=== PATIENT | male | born 1965 | race Hispanic/Latino ===

== ENCOUNTER 2016-09-27 16:56 | Emergency (ER) | payer MEDICAID ==
[2016-09-27 16:59] VITALS: TEMP 98.4; BMI 34.4
[2016-09-27] MEDS ORDERED: TDAP Vaccine 0.5 mL Syr IM ONE (17:07)
--- NOTE | 2016-09-27 17:11 | ED PDOC ---
Arrival/HPI - General Chief Complaint: Abnormal Skin Integrity Time Seen by Provider: 09/27/16 17:06 Historian: Parent - History of Present Illness Narrative History of Present Illness (Text): 09/27/16 17:08 51 y/o male, pmh including copd, nkda, c/o rt. hand 1st digit laceration x 5 hours. Pt. was folding the metal table and caught the rt. hand 1st digital thumb on it, no numbness or tingling, no fever or chills, no headache or night sweat, no other medical or psychological complaints. Past Medical History - Provider Review Nursing Documentation Reviewed: Yes - Infectious Disease Hx of Infectious Diseases: None - Tetanus Immunization Tetanus Immunization: Unknown - Cardiac Hx Cardiac Disorders: Yes Hx Hypertension: Yes - Pulmonary Hx Asthma: Yes Hx Bronchitis: Yes Hx Chronic Obstructive Pulmonary Disease (COPD): Yes - Neurological Hx Neurological Disorder: No - HEENT Hx HEENT Disorder: Yes (WEARS RX GLASSES) - Renal Hx Renal Disorder: No - Endocrine/Metabolic Hx Endocrine Disorders: No - Hematological/Oncological Hx Blood Disorders: No - Integumentary Hx Dermatological Disorder: No - Musculoskeletal/Rheumatological Hx Musculoskeletal Disorders: Yes Hx Arthritis: Yes (DJD) Other/Comment: spinal stenosis - Gastrointestinal Hx Gastrointestinal Disorders: Yes Hx Gastroesophageal Reflux: Yes - Genitourinary/Gynecological Hx Genitourinary Disorders: Yes Hx Prostate Problems: Yes (BPH) - Psychiatric Hx Psychophysiologic Disorder: Yes Hx Anxiety: Yes Hx Depression: No Hx Emotional Abuse: No Hx Physical Abuse: No Hx Substance Use: No - Past Surgical History Past Surgical History: No Previous - Surgical History Other/Comment: gall stone - Anesthesia Hx Anesthesia: Yes Hx Anesthesia Reactions: No - Suicidal Assessment Feels Threatened In Home Enviroment: No Family/Social History - Physician Review Nursing Documentation Reviewed: Yes Family/Social History: Unknown Family HX Smoking Status: Heavy Smoker > 10 Cigarettes Daily Hx Alcohol Use: No Hx Substance Use: No Hx Substance Use Treatment: No Allergies/Home Meds Allergies/Adverse Reactions: Allergies No Known Allergies Allergy (Verified 09/27/16 16:59) Home Medications: Home Meds Medication Instructions Recorded Confirmed Gabapentin [Neurontin] 300 mg PO TID 07/16/12 09/27/16 Omeprazole 40 mg PO DAILY 07/16/12 09/27/16 Celecoxib [Celebrex] 200 mg PO BID 02/23/15 09/27/16 Fluticasone/Salmeterol 250/50 1 puff INH BID 02/23/15 09/27/16 [Advair Diskus 250/50] Oxycodone HCl/Acetaminophen 1 tab PO PRN PRN 06/02/15 09/27/16 [Percocet 325 mg-5 mg] Cyclobenzaprine [Flexeril] 10 mg PO DAILY 06/12/15 09/27/16 Magnesium Oxide [Magnesium Oxide] 400 mg PO DAILY 06/13/15 09/27/16 Potassium Chloride 20 mEq 20 meq PO DAILY 06/13/15 09/27/16 Review of Systems - Review of Systems Constitutional: absent: Fatigue, Fevers Eyes: absent: Vision Changes ENT: absent: Hearing Changes Respiratory: absent: Cough Cardiovascular: absent: Chest Pain Gastrointestinal: absent: Abdominal Pain, Nausea, Vomiting Skin: Laceration. absent: Rash, Pruritis, Skin Lesions, Abscess, Ulcer, Cellulitis Neurological: absent: Headache, Dizziness, Focal Weakness, Gait Changes, Speech Changes, Facial Droop, Disequilibrium, Seizure Physical Exam Vital Signs Reviewed: Yes Vital Signs Temp Pulse Resp BP Pulse Ox 09/27/16 18:47 95 H 18 145/89 98 09/27/16 16:59 98.4 F 105 H 19 171/108 H 96 Temperature: Afebrile Blood Pressure: Hypertensive Pulse: Tachycardic Respiratory Rate: Normal Appearance: Positive for: Well-Appearing, Non-Toxic, Comfortable Pain Distress: Mild Mental Status: Positive for: Alert and Oriented X 3 - Systems Exam Head: Present: Atraumatic, Normocephalic Pupils: Present: PERRL Extroacular Muscles: Present: EOMI Conjunctiva: Present: Normal Mouth: Present: Moist Mucous Membranes Neck: Present: Normal Range of Motion Respiratory/Chest: Present: Clear to Auscultation, Good Air Exchange. No: Respiratory Distress, Accessory Muscle Use Cardiovascular: Present: Regular Rate and Rhythm, Normal S1, S2. No: Murmurs Abdomen: Present: Normal Bowel Sounds. No: Tenderness, Distention, Peritoneal Signs Back: Present: Normal Inspection Upper Extremity: Present: Normal Inspection, Other (Rt. hand: 1st digit thumb visible approx. 2cm laceration noted from the lateral to medial aspect of the base of the nail border region, FROM without limitation, sensation intact, motor 5/5, +radial pulse, capillary refill< 2 seconds, neurovascular intact, ). No: Cyanosis, Edema Lower Extremity: Present: Normal Inspection. No: Edema Neurological: Present: GCS=15, CN II-XII Intact, Speech Normal Skin: Present: Warm, Dry, Normal Color. No: Rashes Psychiatric: Present: Alert, Oriented x 3, Normal Insight, Normal Concentration Medical Decision Making ED Course and Treatment: 09/27/16 17:11 -tetanus, keflex -xray r/o fracture -sensation intact, motor 5/5, wound irrigate with normal saline with 1000cc of normal saline, clean with betadine, sterile procedure, 1% lidocaine digital block the thumb with 2cc, 5-0 nylon made 6 stiches, sensation intact, motor 5/5 , +radial pulse, capillary refill< 2 seconds, neurovascular intact. 09/27/16 18:30 -Ancef 1gm ordered -xray show there is fracture which the patient refused for the hand specialist consult as he will see his own pmd Dr. Velazquez tomorrow for referral for hand specialist which he can see within 2-3 days, risk and benefits explained. -Discharge home with keflex, bacitracin ointment, take tylenol at home for pain as needed, finger splint, keep the skin cool and dry for 48 hours ,sutures need to be removed by day 12, follow up with your own pmd and hand specialist within 2 days, return to the ER for any new or worsening signs or symptoms. - RAD Interpretation Radiology Orders: 09/27/16 17:06 HAND LEFT THUMB [RAD] Stat transverse fracture of the distal phalanx Primary Operator: Radiologist - Medication Orders Current Medication Orders: Discontinued Medications Cefazolin Sodium (Ancef) 1 gm IM STAT STA PRN Reason: Protocol Stop: 09/27/16 18:35 Last Admin: 09/27/16 18:53 Dose: 1 gm Cephalexin Monohydrate (Keflex) 500 mg PO STAT STA PRN Reason: Protocol Stop: 09/27/16 17:08 Last Admin: 09/27/16 17:21 Dose: 500 mg Tetanus/Reduced Diphtheria/Acell Pertussis (Boostrix Vaccine Inj) 0.5 ml IM .ONCE ONE Stop: 09/27/16 17:08 Last Admin: 09/27/16 17:21 Dose: 0.5 ml - PA / EXTRACTION MACHINE OPERATOR / Resident Statement MD/DO has reviewed & agrees with the documentation as recorded. Disposition/Present on Arrival - Present on Arrival Any Indicators Present on Arrival: No History of DVT/PE: No History of Uncontrolled Diabetes: No Urinary Catheter: No History of Decub. Ulcer: No History Surgical Site Infection Following: None - Disposition Have Diagnosis and Disposition been Completed?: Yes Diagnosis: Thumb fracture, Laceration of thumb Disposition: HOME/ ROUTINE Disposition Time: 18:31 Patient Plan: Discharge Condition: IMPROVED Additional Instructions: Discharge home with keflex, bacitracin ointment, take tylenol at home for pain as needed, finger splint, keep the skin cool and dry for 48 hours ,sutures need to be removed by day 12, follow up with your own pmd and hand specialist within 2 days, return to the ER for any new or worsening signs or symptoms. Prescriptions: Bacitracin Ointment [Bacitracin] 1 appful TOP BID #15 g Cephalexin [cephalexin] 500 mg PO QID #40 cap Referrals: Primo Velazquez JD, MD [Primary Care Provider] - Follow up with primary Yonny Perez MD [Non-Staff] - Follow up with primary Forms: WORK NOTE
[2016-09-27 18:48] VITALS: BP 145/89; PULSE 95; RESP 18; O2SAT 98
--- NOTE | 2016-09-28 08:34 | RAD ---
PROCEDURE: Left Hand and thumb Radiographs. HISTORY: lt. hand 1st digit thumb laceration COMPARISON: None. FINDINGS: BONES: There is a transverse fracture through the 1st distal phalanx. There is extensive soft tissue swelling JOINTS: Normal. No osteoarthritic changes. SOFT TISSUES: Normal. OTHER FINDINGS: None. IMPRESSION: Transverse fracture 1st distal phalanx with soft tissue swelling
== END 2016-09-27 19:03 | disposition home or self-care (01) ==
LOC: ED 16:56
DX: S61.012A Laceration without foreign body of left thumb without damage to nail, initial encounter (principal); S62.522A Displaced fracture of distal phalanx of left thumb, initial encounter for closed fracture; W23.0XXA Caught, crushed, jammed, or pinched between moving objects, initial encounter; I10 Essential (primary) hypertension; Z23 Encounter for immunization; F17.210 Nicotine dependence, cigarettes, uncomplicated
CPT/HCPCS: 12001; 73140; 90471; 90715; 96372; 99282; J0690

== ENCOUNTER 2016-12-06 16:59 | Emergency (ER) | payer MEDICAID ==
[2016-12-06 17:31] VITALS: BMI 32.5
[2016-12-06] MEDS ORDERED: Vancomycin 1gm in NS 250ml 1 GM/250 ML BAG IVPB STA (17:34)
[2016-12-06] MEDS ORDERED: Piperacillin/Tazobact 3.375 gm 100 ML IVPB STA (17:36)
[2016-12-06] MEDS ORDERED: Lidocaine 1% Inj (20ml) ONE (18:00)
--- NOTE | 2016-12-06 18:11 | ED PDOC ---
Addendum entered and electronically signed by Hilda Iniguez PA-C 12/07/16 15:17 : Addendum Addendum: 12/07/16 15:16 EKG: NSR at 97 bpm. Normal interval Original Note: Arrival/HPI - General Historian: Patient - History of Present Illness Time/Duration: < week Symptom Onset: Gradual Symptom Course: Worsening Context: Home - General Time Seen by Provider: 12/06/16 17:08 - History of Present Illness Narrative History of Present Illness (Text): 12/06/16 17:27 This 51 yo male PMHx includes gallstones, COPD, spinal stenosis presents to this ED c/o left forearm abscess x 4 days. Patient also stated he developed a rash x 4 days [address] Patient saw Dr. Velazquez regarding the skin problems. Dr. Velazquez prescribed him Valtrex for shingles, Lidocaine cream for rash pain, and topical antibiotic for abscess. Patient antibiotic cream is not working. He said his left arm is twice a big to right arm. He said he develop an acute left sided chest pain, and lefty shoulder pain x 1 hour. Pain is worsen with movement, or deep inspiration. Denies other complains. (Hilda Iniguez) Past Medical History - Provider Review Nursing Documentation Reviewed: Yes - Infectious Disease Hx of Infectious Diseases: None - Tetanus Immunization Tetanus Immunization: Unknown - Cardiac Hx Cardiac Disorders: Yes Hx Hypertension: Yes - Pulmonary Hx Asthma: Yes Hx Bronchitis: Yes Hx Chronic Obstructive Pulmonary Disease (COPD): Yes - Neurological Hx Neurological Disorder: No - HEENT Hx HEENT Disorder: Yes (WEARS RX GLASSES) - Renal Hx Renal Disorder: No - Endocrine/Metabolic Hx Endocrine Disorders: No - Hematological/Oncological Hx Blood Disorders: No - Integumentary Hx Dermatological Disorder: No - Musculoskeletal/Rheumatological Hx Musculoskeletal Disorders: Yes Hx Arthritis: Yes (DJD) Other/Comment: spinal stenosis - Gastrointestinal Hx Gastrointestinal Disorders: Yes Hx Gastroesophageal Reflux: Yes - Genitourinary/Gynecological Hx Genitourinary Disorders: Yes Hx Prostate Problems: Yes (BPH) - Psychiatric Hx Psychophysiologic Disorder: Yes Hx Anxiety: Yes Hx Depression: No Hx Emotional Abuse: No Hx Physical Abuse: No Hx Substance Use: No - Past Surgical History Past Surgical History: No Previous - Surgical History Other/Comment: gall stone - Anesthesia Hx Anesthesia: Yes Hx Anesthesia Reactions: No - Suicidal Assessment Feels Threatened In Home Enviroment: No Family/Social History - Physician Review Nursing Documentation Reviewed: Yes Family/Social History: No Known Family HX Smoking Status: Heavy Smoker > 10 Cigarettes Daily Hx Alcohol Use: No Hx Substance Use: No Hx Substance Use Treatment: No Allergies/Home Meds Allergies/Adverse Reactions: Allergies No Known Allergies Allergy (Verified 09/27/16 16:59) Home Medications: Home Meds Medication Instructions Recorded Confirmed Gabapentin [Neurontin] 300 mg PO TID 07/16/12 12/06/16 Omeprazole 40 mg PO DAILY 07/16/12 12/06/16 Celecoxib [Celebrex] 200 mg PO BID 02/23/15 12/06/16 Fluticasone/Salmeterol 250/50 1 puff INH BID 02/23/15 12/06/16 [Advair Diskus 250/50] Oxycodone HCl/Acetaminophen 1 tab PO PRN PRN 06/02/15 12/06/16 [Percocet 325 mg-5 mg] Cyclobenzaprine [Flexeril] 10 mg PO DAILY 06/12/15 12/06/16 Magnesium Oxide [Magnesium Oxide] 400 mg PO DAILY 06/13/15 12/06/16 Potassium Chloride 20 mEq 20 meq PO DAILY 06/13/15 12/06/16 Review of Systems - Review of Systems Constitutional: Normal. absent: Fatigue, Weight Change, Fevers Eyes: Normal ENT: Normal Respiratory: Normal Cardiovascular: Normal Gastrointestinal: Normal Genitourinary Male: Normal Musculoskeletal: Normal Skin: Rash, Abscess, Cellulitis Neurological: Normal Endocrine: Normal Hemo/Lymphatic: Normal Psychiatric: Normal Physical Exam Temperature: Afebrile Blood Pressure: Normal Pulse: Regular Respiratory Rate: Normal Appearance: Positive for: Well-Appearing, Non-Toxic, Comfortable Pain Distress: None Mental Status: Positive for: Alert and Oriented X 3 - Systems Exam Head: Present: Atraumatic, Normocephalic Pupils: Present: PERRL Extroacular Muscles: Present: EOMI Conjunctiva: Present: Normal Mouth: Present: Moist Mucous Membranes Neck: Present: Normal Range of Motion Respiratory/Chest: Present: Clear to Auscultation, Good Air Exchange, Tender to Palpation ((+) mild left costochondral tender on palpation. Left side CP is 100 % reproducible.). No: Respiratory Distress, Accessory Muscle Use Cardiovascular: Present: Regular Rate and Rhythm, Normal S1, S2. No: Murmurs Abdomen: Present: Normal Bowel Sounds. No: Tenderness, Distention, Peritoneal Signs Back: Present: Normal Inspection Upper Extremity: Present: Normal Inspection. No: Cyanosis, Edema Lower Extremity: Present: Normal Inspection. No: Edema Neurological: Present: GCS=15, CN II-XII Intact, Speech Normal Skin: Present: Warm, Dry, Normal Color. No: Rashes Psychiatric: Present: Alert, Oriented x 3, Normal Insight, Normal Concentration Vital Signs Temp Pulse Resp BP Pulse Ox 12/06/16 18:32 16 94 L 12/06/16 17:55 97.1 F L 85 16 125/70 90 L Medical Decision Making Re-evaluation Time: 20:56 Reassessment Condition: Re-examined, Improved - Lab Interpretations I have reviewed the lab results: Yes Interpretation: No clinic. lab abnormalty ED Course and Treatment: I was available for consultation during PA evaluation. The chart was reviewed by me, and I agree with disposition. The documented history was done by the physician heading pinner. The documented physical exam was done by the physician heading pinner. The documented procedures were done by the physician heading pinner. (Nicho Valenzuela) 12/06/16 20:35 Patient stated his left arm infection has improved, and he denies CP at this time. He denies sob, cough, fever, recent travel or sick contact 12/06/16 20:[address] Velazquez regarding left forearm cellulitis, and abscess. Ans , also regarding left CP. CP is 100 % reproducible on palpation. Labs and imaging were reviewed. Normal wbc, sed rate, and troponin. Dr. Velazquez recommended to d/c patient home, and to f/u his office tomorrow morning. (Hilda Iniguez) - Lab Interpretations Lab Results: 12/06/16 18:20 12/06/16 18:20 Lab Results 12/06/16 18:20: pO2 185 H, VBG pH 7.35, VBG pCO2 59.0, VBG HCO3 32.6 H, VBG Total CO2 34.4 H, VBG O2 Sat (Calc) 99.6 H, VBG Base Excess 5.2 H, VBG Potassium 4.5, Sodium 136.0, Chloride 104.0, Glucose 97, Lactate 0.5 L, FiO2 21.0, Venous Blood Potassium 4.5 12/06/16 18:20: Sodium 138, Chloride 100, Potassium 4.2, Carbon Dioxide 30, Anion Gap 12, BUN 27 H, Creatinine 1.0, Est GFR ( Amer) > 60, Est GFR ( Non-Af Amer) > 60, Random Glucose 96, Calcium 9.2, Magnesium 2.0, Total Bilirubin 0.7, AST 30, ALT 34, Alkaline Phosphatase 68, Lactate Dehydrogenase 542, Total Creatine Kinase 335 H, CK-MB (CK-2) 7.6 H, CK-MB (CK-2) % 2.3 L, Troponin I < 0.01, NT-Pro-B Natriuret Pep 55.3, Total Protein 6.9, Albumin 4.0, Globulin 3.0, Albumin/Globulin Ratio 1.3 12/06/16 18:20: WBC 10.2 D, RBC 4.60, Hgb 13.7 L, Hct 40.9 L, MCV 88.9, MCH 29.8, MCHC 33.5, RDW 12.8, Plt Count 202, MPV 9.0, Gran % 71.6 H, Lymph % (Auto ) 15.9 L, [place] % (Auto) 10.0 H, Eos % (Auto) 2.0, Baso % (Auto) 0.5, Gran # 7.33 H, Lymph # 1.6, [place] # 1.0 H, Eos # 0.2, Baso # 0.05, ESR 8 - RAD Interpretation Narrative RAD Interpretations (Text): 12/06/16 18:14 Venous Doppler of UE: No DVT, as per US (Hilda Iniguez) Radiology Orders: 12/06/16 17:33 CHEST PORTABLE [RAD] Stat 12/06/16 17:35 DUPLEX UPPER EXTRM VEIN LEFT [US] Stat - Medication Orders Current Medication Orders: Discontinued Medications Albuterol/Ipratropium (Duoneb 3 Mg/0.5 Mg (3 Ml) Ud) 3 ml IH Q15M NORBERT Stop: 12/06/16 18:16 Last Admin: 12/06/16 19:29 Dose: 3 ml Vancomycin HCl (Vancomycin 1gm) 1 gm in 250 mls @ 167 mls/hr IVPB STAT STA PRN Reason: Protocol Stop: 12/06/16 19:03 Last Admin: 12/06/16 19:31 Dose: 167 mls/hr Piperacillin Sod/Tazobactam Sod (Zosyn 3.375 In Ns 100ml) 100 mls @ 200 mls/hr IVPB STAT STA PRN Reason: Protocol Stop: 12/06/16 18:05 Last Admin: 12/06/16 18:40 Dose: 200 mls/hr Lidocaine HCl (Lidocaine 1% (20ml)) Confirm Administered Dose 20 ml .ROUTE .K- MED ONE Stop: 12/06/16 18:01 - Procedure PROCEDURE NOTE (Text): PROCEDURE: INCISION & DRAINAGE Performed by the emergency provider Indication: Abscess Location: Left forearm Preparation: The area was prepped and draped in the usual sterile fashion and was cleansed with chlorhexadine. Local infiltration of Lidocaine 1% was used for anesthesia. Procedure: The most fluctuant portion of the abscess was incised with a #11 scalpel. ~ Approximately 1 mL of purulent discharge was obtained. The abscess was packed. A dressing was applied by the RN. Post-Procedure: On exam the abscess is notably less fluctuant. The patient tolerated the procedure well, and there were no complications. Cultured: YES (Vitaliy Davis) Disposition/Present on Arrival - Present on Arrival Any Indicators Present on Arrival: No History of DVT/PE: No History of Uncontrolled Diabetes: No Urinary Catheter: No History Surgical Site Infection Following: None - Disposition Have Diagnosis and Disposition been Completed?: Yes Disposition Time: 20:59 Patient Plan: Discharge - Disposition Diagnosis: Cellulitis and abscess of upper arm and forearm Disposition: HOME/ ROUTINE Patient Problems: Current Active Problems Problem Status Onset Cellulitis and abscess of upper arm and forearm Acute Condition: GOOD Discharge Instructions (ExitCare): Cellulitis (ED) Additional Instructions: Dr. Velazquez wants to see you tomorrow morning Prescriptions: Amoxicillin/Clavulanate [Augmentin 875 MG-125 MG] 1 tab PO BID #20 tab Sulfamethoxazole/Trimethoprim [Bactrim DS 800 mg-160 mg] 1 tab PO BID #20 tab Referrals: Primo Velazquez JD, MD [Primary Care Provider] - Follow up with primary
[2016-12-06 18:28] VITALS: TEMP 97.1
--- NOTE | 2016-12-06 18:37 | US ---
PROCEDURE: Left upper extremity venous ultrasound HISTORY: Arm pain and swelling. Evaluate for deep venous thrombosis. PHYSICIAN(S): Dominguez Issa MD. FINDINGS: The visualized leftinternal jugular vein is small in caliber but patent. The visualized segments of the left subclavian vein are patent with normal waveforms. No sonographic evidence of obstruction or thrombosis is seen. The visualized deep venous system of the proximal leftupper extremity is sonographically normal and compressible. IMPRESSION: 1. No sonographic evidence for deep venous thrombosis in the visualized segments of the left upper extremity.
[2016-12-06 19:02] LABS: BASO # 0.05 K/mm3 (0.0-2.0); BASO % 0.5 % (0.0-3.0); EOS # 0.2 (0.0-0.7); GRAN # 7.33 (1.4-6.5); GRAN % 71.6 % (50.0-68.0); HEMOGLOBIN 13.7 gm/dL (14.0-18.0); LYMPH # 1.6 (1.2-3.4); LYMPH % 15.9 % (22.0-35.0); MEAN CELL VOLUME 88.9 fL (80.0-105.0); MEAN CORPUSCULAR HEMOGLOBIN 29.8 pg (25.0-35.0); MEAN CORPUSCULAR HGB CONC 33.5 g/dl (31.0-37.0); PLATELET COUNT 202 10^3/uL (120.0-450.0); RED CELL DISTRIBUTION WIDTH 12.8 % (11.5-14.5); WHITE BLOOD COUNT 10.2 10^3/ul (4.5-11.0)
[2016-12-06 19:05] LABS: VENOUS BLOOD GAS BASE EXCESS 5.2 mmol/L (0.0-2.0); VENOUS BLOOD GAS PO2 185 mm/Hg (30-55); VENOUS BLOOD PH 7.35 (7.32-7.43)
[2016-12-06 19:14] LABS: ALB/GLOB RATIO 1.3 (1.1-1.8); ALT/SGPT 34 U/L (7-56); AST/SGOT 30 U/L (15-59); BLOOD UREA NITROGEN 27 mg/dL (7-21); CALCIUM 9.2 mg/dL (8.4-10.5); GFR AFRICAN-AMERICAN > 60; GFR NON-AFRICAN AMERICAN > 60
[2016-12-06 19:25] LABS: B-TYPE NATRIURETIC PEPTIDE 55.3 pg/mL (0-450)
[2016-12-06 19:29] LABS: CK MB% 2.3 % (2.5-3.0); CK-MB 7.6 ng/mL (0.0-3.6)
[2016-12-06] MEDS: Albuterol-Ipratrop 3 mg / 0.5 (3 ml) UD IH SCH (19:29)
[2016-12-06 19:30] LABS: TROPONIN I < 0.01 ng/mL
--- NOTE | 2016-12-06 19:33 | CARD ---
APPROVED REPORT EKG Measurement Heart [id number] <Conclusion> Normal sinus rhythm Normal ECG
[2016-12-06 21:24] VITALS: BP 127/69; PULSE 69; RESP 18; O2SAT 98
--- NOTE | 2016-12-07 08:23 | RAD ---
HISTORY: sob COMPARISON: 08/08/2016 FINDINGS: LUNGS: No active pulmonary disease. PLEURA: No significant pleural effusion identified, no pneumothorax apparent. CARDIOVASCULAR: Normal. OSSEOUS STRUCTURES: No significant abnormalities. VISUALIZED UPPER ABDOMEN: Normal. OTHER FINDINGS: None. IMPRESSION: No active disease.
== END 2016-12-06 21:22 | disposition home or self-care (01) ==
LOC: ED 16:59
DX: L02.414 Cutaneous abscess of left upper limb (principal); L03.114 Cellulitis of left upper limb
CPT/HCPCS: 10060; 71010; 80053; 82550; 82553; 82803; 83615; 83735; 83880; 84484; 85025; 85651; 86140; 87040; 87070; 93005; 93971; 94640; 96374; 96375; 99283; J2543

== ENCOUNTER 2016-12-07 19:19 | Inpatient (IN) | payer MEDICAID ==
[2016-12-07 19:20] VITALS: BMI 32.5
--- NOTE | 2016-12-07 19:52 | ED PDOC ---
Arrival/HPI <PeterJohn meng - Last Filed: 12/07/16 20:05> - General Historian: Patient - History of Present Illness Time/Duration: Other (see hpi) Context: Home <Hilda Iniguez - Last Filed: 12/15/16 21:45> - General Chief Complaint: Upper Extremity Problem/Injury Time Seen by Provider: 12/07/16 19:25 - History of Present Illness Narrative History of Present Illness (Text): 12/07/16 19:51 This 51 yo male presents to this ED c/o worsening of left forearm skin infection. Patient has been recently seen by his pmd for left forearm shingles. He was seen in this ED for abscess, and left forearm cellulitis. Patient has been taking abx, but infection has worsen. Denies fever, or other complains. (Hilda Iniguez) Past Medical History - Provider Review Nursing Documentation Reviewed: Yes - Infectious Disease Hx of Infectious Diseases: None - Tetanus Immunization Tetanus Immunization: Unknown - Cardiac Hx Cardiac Disorders: Yes Hx Hypertension: Yes - Pulmonary Hx Asthma: Yes Hx Bronchitis: Yes Hx Chronic Obstructive Pulmonary Disease (COPD): Yes - Neurological Hx Neurological Disorder: No - HEENT Hx HEENT Disorder: Yes (WEARS RX GLASSES) - Renal Hx Renal Disorder: No - Endocrine/Metabolic Hx Endocrine Disorders: No - Hematological/Oncological Hx Blood Disorders: No - Integumentary Hx Dermatological Disorder: No - Musculoskeletal/Rheumatological Hx Musculoskeletal Disorders: Yes Hx Arthritis: Yes (DJD) Other/Comment: spinal stenosis - Gastrointestinal Hx Gastrointestinal Disorders: Yes Hx Gastroesophageal Reflux: Yes - Genitourinary/Gynecological Hx Genitourinary Disorders: Yes Hx Prostate Problems: Yes (BPH) - Psychiatric Hx Psychophysiologic Disorder: Yes Hx Anxiety: Yes Hx Depression: No Hx Emotional Abuse: No Hx Physical Abuse: No Hx Substance Use: No - Past Surgical History Past Surgical History: No Previous - Surgical History Other/Comment: gall stone - Anesthesia Hx Anesthesia: Yes Hx Anesthesia Reactions: No - Suicidal Assessment Feels Threatened In Home Enviroment: No <Hilda Iniguez - Last Filed: 12/15/16 21:45> Family/Social History - Physician Review Nursing Documentation Reviewed: Yes Family/Social History: No Known Family HX Smoking Status: Heavy Smoker > 10 Cigarettes Daily Hx Alcohol Use: No Hx Substance Use: No Hx Substance Use Treatment: No <Hilda Iniguez - Last Filed: 12/15/16 21:45> Allergies/Home Meds <John rGeen - Last Filed: 12/07/16 20:05> <Hilda Iniguez - Last Filed: 12/15/16 21:45> Allergies/Adverse Reactions: Allergies No Known Allergies Allergy (Verified 09/27/16 16:59) Home Medications: Home Meds Medication Instructions Recorded Confirmed Gabapentin [Neurontin] 300 mg PO TID 07/16/12 12/07/16 Omeprazole 40 mg PO DAILY 07/16/12 12/07/16 Celecoxib [Celebrex] 200 mg PO BID 02/23/15 12/07/16 Fluticasone/Salmeterol 250/50 1 puff INH BID 02/23/15 12/07/16 [Advair Diskus 250/50] Cyclobenzaprine [Flexeril] 10 mg PO DAILY 06/12/15 12/07/16 Magnesium Oxide [Magnesium Oxide] 400 mg PO DAILY 06/13/15 12/07/16 Potassium Chloride 20 mEq 20 meq PO DAILY 06/13/15 12/07/16 Celecoxib [Celebrex] 400 mg PO DAILY 12/07/16 12/07/16 Famciclovir [Famvir] 500 mg PO QID 12/07/16 12/07/16 Losartan Potassium [Losartan 50 mg PO DAILY 12/07/16 12/07/16 Potassium] Omeprazole [Omeprazole] 40 mg pe PO DAILY 12/07/16 12/07/16 Oxycodone HCl/Acetaminophen 1 tab PO Q6H PRN 12/08/16 12/08/16 [Percocet 10-325 mg Tablet] Review of Systems - Review of Systems Constitutional: Normal. absent: Fatigue, Weight Change, Fevers Eyes: Normal ENT: Normal Respiratory: Normal Cardiovascular: Normal Gastrointestinal: Normal Genitourinary Male: Normal Musculoskeletal: Normal Skin: Abscess, Cellulitis (left forearm) Neurological: Normal Endocrine: Normal Hemo/Lymphatic: Normal Psychiatric: Normal <Hilda Iniguez - Last Filed: 12/15/16 21:45> Physical Exam Temperature: Afebrile Blood Pressure: Normal Pulse: Regular Respiratory Rate: Normal Appearance: Positive for: Well-Appearing, Non-Toxic, Comfortable Pain Distress: None Mental Status: Positive for: Alert and Oriented X 3 - Systems Exam Head: Present: Atraumatic, Normocephalic Pupils: Present: PERRL Extroacular Muscles: Present: EOMI Conjunctiva: Present: Normal Mouth: Present: Moist Mucous Membranes Neck: Present: Normal Range of Motion Respiratory/Chest: Present: Clear to Auscultation, Good Air Exchange. No: Respiratory Distress, Accessory Muscle Use Cardiovascular: Present: Regular Rate and Rhythm, Normal S1, S2. No: Murmurs Abdomen: Present: Normal Bowel Sounds. No: Tenderness, Distention, Peritoneal Signs Back: Present: Normal Inspection Upper Extremity: Present: Normal ROM, NORMAL PULSES, Tenderness, Swelling, Erythema, Neurovascularly Intact, Temperature Abnormalties, Capillary Refill < 2s, Other (Left forearm cellulitis). No: Cyanosis, Edema Lower Extremity: Present: Normal Inspection. No: Edema Neurological: Present: GCS=15, CN II-XII Intact, Speech Normal Skin: Present: Warm, Dry, Normal Color. No: Rashes Psychiatric: Present: Alert, Oriented x 3, Normal Insight, Normal Concentration <Hilda Iniguez - Last Filed: 12/15/16 21:45> Vital Signs Temp Pulse Resp BP Pulse Ox 12/07/16 23:29 82 16 98/63 L 96 12/07/16 19:33 98.8 F 99 H 18 119/76 94 L Medical Decision Making <John Green - Last Filed: 12/07/16 20:05> Re-evaluation Time: 21:35 Reassessment Condition: Re-examined, Improving,but remains with symptoms - Lab Interpretations I have reviewed the lab results: Yes Interpretation: No clinic. lab abnormalty <Hilda Iniguez - Last Filed: 12/15/16 21:45> ED Course and Treatment: 12/07/16 21:[address] Velazquez regarding patient worsening of condition, and failure of out patient ABX treatment. He agrees with plan for admission (Hilda Iniguez) - Lab Interpretations Lab Results: 12/07/16 20:30 12/07/16 20:30 Lab Results 12/07/16 20:30: Sodium 140, Potassium 4.3, Chloride 101, Carbon Dioxide 28, Anion Gap 15, BUN 30 H, Creatinine 1.3, Est GFR ( Amer) > 60, Est GFR ( Non-Af Amer) 58, Random Glucose 91, Calcium 9.2, Total Bilirubin 0.9, AST 29, ALT 41, Alkaline Phosphatase 72, Total Protein 7.5, Albumin 4.2, Globulin 3.3, Albumin/Globulin Ratio 1.3 12/07/16 20:30: WBC 9.8, RBC 4.74, Hgb 13.9 L, Hct 42.5, MCV 89.7, MCH 29.3, MCHC 32.7, RDW 12.9, Plt Count 228, MPV 9.2, Gran % 73.0 H, Lymph % (Auto) 14.9 L, [place] % (Auto) 10.9 H, Eos % (Auto) 0.7 L, Baso % (Auto) 0.5, Gran # 7.16 H, Lymph # 1.5, [place] # 1.1 H, Eos # 0.1, Baso # 0.05, ESR 15 - Medication Orders Current Medication Orders: Discontinued Medications Acetaminophen (Tylenol 325mg Tab) 650 mg PO Q4H PRN PRN Reason: Fever >100.4 F Al Hydrox/Mg Hydrox/Simethicone (Maalox Plus 30 Ml) 30 ml PO ONCE ONE Stop: 12/08/16 11:13 Last Admin: 12/08/16 11:48 Dose: 30 ml Sodium Chloride (Sodium Chloride 0.9%) 1,000 mls @ 999 mls/hr IV .Q1H1M STA Stop: 12/07/16 20:54 Last Admin: 12/07/16 20:42 Dose: 999 mls/hr Vancomycin HCl (Vancomycin 1gm) 1 gm in 250 mls @ 167 mls/hr IVPB STAT STA PRN Reason: Protocol Stop: 12/07/16 21:22 Last Admin: 12/07/16 22:28 Dose: 167 mls/hr Piperacillin Sod/Tazobactam Sod (Zosyn 3.375 In Ns 100ml) 100 mls @ 200 mls/hr IVPB STAT STA PRN Reason: Protocol Stop: 12/07/16 20:22 Last Admin: 12/07/16 20:42 Dose: 200 mls/hr Vancomycin HCl (Vancomycin 1gm) 1 gm in 250 mls @ 167 mls/hr IVPB Q12H NORBERT PRN Reason: Protocol Last Admin: 12/08/16 21:29 Dose: 167 mls/hr Piperacillin Sod/Tazobactam Sod (Zosyn 2.25 Gm In 0.9% 100 Ml) 2.25 gm in 100 mls @ 100 mls/hr IVPB Q6 NORBERT PRN Reason: Protocol Stop: 12/08/16 12:59 Last Admin: 12/08/16 12:53 Dose: 100 mls/hr Ceftaroline Fosamil 400 mg/ (Sodium Chloride) 100 mls @ 100 mls/hr IVPB Q12 NORBERT PRN Reason: Protocol Stop: 12/15/16 22:46 Last Admin: 12/10/16 09:57 Dose: 100 mls/hr Ceftaroline Fosamil 400 mg/ (Sodium Chloride) 100 mls @ 100 mls/hr IVPB ONCE ONE PRN Reason: Protocol Stop: 12/09/16 10:15 Last Admin: 12/09/16 10:28 Dose: 100 mls/hr Ibuprofen (Motrin Tab) 400 mg PO Q6H PRN PRN Reason: Pain, Mild (1-3) Mupirocin (Bactroban Ointment) 0 gm TOP BID [facility] Last Admin: 12/10/16 09:58 Dose: 1 oin Oxycodone/Acetaminophen (Percocet 5/325 Mg Tab) 1 tab PO Q6H PRN PRN Reason: Pain, moderate (4-7) Stop: 12/11/16 11:54 Oxycodone/Acetaminophen (Percocet 10/325 Mg Tab) 1 tab PO Q6H PRN PRN Reason: Pain, severe (8-10) Last Admin: 12/10/16 06:13 Dose: 1 tab Re-Assess: RUBEN Pain Assessment Document 12/10/16 07:13 DSZ (Rec: 12/10/16 09:56 DSZ [id number]) Pain Reassessment Is this a pain reassessment? Yes Sleep Is patient sleeping during reassessment? No Presence of Pain Presence of Pain Yes Pain Scale Used Pain Scale Used Numeric Location Left, Right or Bilateral Left Description Description Intermittent Intensity of Pain at present 3 Acceptable Level of Pain 3 Pain Behavior Withdrawal from Touch Alleviating Factors/Management Medication Techniques Heat Alleviating Factors Medication Pantoprazole Sodium (Protonix Ec Tab) 40 mg PO STAT STA Stop: 12/08/16 11:12 Last Admin: 12/08/16 11:48 Dose: 40 mg Pantoprazole Sodium (Protonix Ec Tab) 40 mg PO 0600 NORBERT Last Admin: 12/10/16 05:58 Dose: 40 mg - PA / INTERNET MARKETING DIRECTOR / Resident Statement / has reviewed & agrees with the documentation as recorded. / has examined the patient and agrees with the treatment plan. <John Green - Last Filed: 12/07/16 20:05> Disposition/Present on Arrival <John Green - Last Filed: 12/07/16 20:05> - Present on Arrival Any Indicators Present on Arrival: No History of DVT/PE: No History of Uncontrolled Diabetes: No Urinary Catheter: No History of Decub. Ulcer: No History Surgical Site Infection Following: None - Disposition Have Diagnosis and Disposition been Completed?: Yes Disposition Time: 21:36 Patient Plan: Admission <Hilda Iniguez - Last Filed: 12/15/16 21:45> - Disposition Diagnosis: Cellulitis, Shingles rash, Abscess, Failure of outpatient treatment Disposition: HOSPITALIZED Condition: STABLE
[2016-12-07] MEDS ORDERED: Vancomycin 1gm in NS 250ml 1 GM/250 ML BAG IVPB STA (19:53)
[2016-12-07] MEDS ORDERED: Piperacillin/Tazobact 3.375 gm 100 ML IVPB STA (19:53)
[2016-12-07] MEDS ORDERED: Sodium Chloride 0.9% 1,000 ML IV STA (19:54)
[2016-12-07 21:01] LABS: ALB/GLOB RATIO 1.3 (1.1-1.8); ALBUMIN 4.2 g/dL (3.0-4.8); ALT/SGPT 41 U/L (7-56); AST/SGOT 29 U/L (15-59); BLOOD UREA NITROGEN 30 mg/dL (7-21); CALCIUM 9.2 mg/dL (8.4-10.5); GFR AFRICAN-AMERICAN > 60; GFR NON-AFRICAN AMERICAN 58
[2016-12-07 21:03] LABS: BASO # 0.05 K/mm3 (0.0-2.0); BASO % 0.5 % (0.0-3.0); EOS # 0.1 (0.0-0.7); EOS % 0.7 % (1.5-5.0); GRAN # 7.16 (1.4-6.5); HEMOGLOBIN 13.9 gm/dL (14.0-18.0); LYMPH # 1.5 (1.2-3.4); LYMPH % 14.9 % (22.0-35.0); MEAN CELL VOLUME 89.7 fL (80.0-105.0); MEAN CORPUSCULAR HEMOGLOBIN 29.3 pg (25.0-35.0); MEAN CORPUSCULAR HGB CONC 32.7 g/dl (31.0-37.0); MEAN PLATELET VOLUME 9.2 fl (7.0-11.0); MONO # 1.1 (0.1-0.6); MONO % 10.9 % (1.0-6.0); PLATELET COUNT 228 10^3/uL (120.0-450.0); RBC 4.74 10^6/uL (3.5-6.1); RED CELL DISTRIBUTION WIDTH 12.9 % (11.5-14.5); WHITE BLOOD COUNT 9.8 10^3/ul (4.5-11.0)
--- NOTE | 2016-12-08 00:57 | CP.PCM.CON ---
<Jr Monae - Last Filed: 12/11/16 22:10> History of Present Illness - History of Present Illness History of Present Illness: CONSULT NOTE FOR DR. CORNEJO 51M presents with left arm pain starting on Wednesday 12/06. Patient came to the ED on tuesday for an abscess that was drained and packed at that time. He was supposed to follow up with primary physician but came back to ED for a new bump that rises from the same general area. Patient states the area is tender is touch and he denies any spontaneous drainage. The two abscesses are in a general region where is has shingles rash on his arm. Denies fevers. PMH: COPD, Spinal stenosis PSH: Cholecystectomy Social: admits tobacco use, denies alcohol or illicit drugs Allergies: NKDA Past Patient History - Infectious Disease Hx of Infectious Diseases: None - Tetanus Immunizations Tetanus Immunization: Unknown - Past Social History Smoking Status: Heavy Smoker > 10 Cigarettes Daily - CARDIAC Hx Cardiac Disorders: Yes Hx Hypertension: Yes - PULMONARY Hx Asthma: Yes Hx Bronchitis: Yes Hx Chronic Obstructive Pulmonary Disease (COPD): Yes - NEUROLOGICAL Hx Neurological Disorder: No - HEENT Hx HEENT Problems: Yes (WEARS RX GLASSES) - RENAL Hx Chronic Kidney Disease: No - ENDOCRINE/METABOLIC Hx Endocrine Disorders: No - HEMATOLOGICAL/ONCOLOGICAL Hx Blood Disorders: No - INTEGUMENTARY Hx Dermatological Problems: No - MUSCULOSKELETAL/RHEUMATOLOGICAL Hx Musculoskeletal Disorders: Yes Hx Arthritis: Yes (DJD) Other/Comment: spinal stenosis - GASTROINTESTINAL Hx Gastrointestinal Disorders: Yes Hx Gastroesophageal Reflux: Yes - GENITOURINARY/GYNECOLOGICAL Hx Genitourinary Disorders: Yes Hx Prostate Problems: Yes (BPH) - PSYCHIATRIC Hx Psychophysiologic Disorder: Yes Hx Anxiety: Yes Hx Depression: No Hx Emotional Abuse: No Hx Physical Abuse: No Hx Substance Use: No - SURGICAL HISTORY Other/Comment: gall stone - ANESTHESIA Hx Anesthesia: Yes Hx Anesthesia Reactions: No Meds Allergies/Adverse Reactions: Allergies Allergy/AdvReac Type Severity Reaction Status Date / Time No Known Allergies Allergy Verified 09/27/16 16:59 - Medications Medications: Current Medications Ibuprofen (Motrin Tab) 400 mg PO Q6H PRN PRN Reason: Pain, Mild (1-3) Physical Exam - Constitutional Appears: Non-toxic, No Acute Distress - Eye Exam Eye Exam: EOMI, PERRL - ENT Exam ENT Exam: Mucous Membranes Moist - Respiratory Exam Respiratory Exam: Clear to Auscultation Bilateral, NORMAL BREATHING PATTERN - Cardiovascular Exam Cardiovascular Exam: REGULAR RHYTHM, +S1, +S2 - GI/Abdominal Exam GI & Abdominal Exam: Soft. absent: Distended, Firm, Guarding, Rebound, Rigid, Tenderness - Extremities Exam Additional comments: - left arm, shingles rash. - Abscess on left arm s/p drainage and packing, packing removed, dressing place , purulent discharge - Second abscess on left arm approximately 3*3cm, indurated, non-fluctuant - Neurological Exam Neurological exam: Alert, Oriented x3 - Psychiatric Exam Psychiatric exam: Normal Affect, Normal Mood - Skin Skin Exam: Dry, Intact, Normal Color, Warm Results - Vital Signs Recent Vital Signs: Last Vital Signs Temp 98.8 F 12/07/16 19:33 Pulse 82 12/07/16 23:29 Resp 16 12/07/16 23:29 BP 98/63 L 12/07/16 23:29 Pulse Ox 96 12/07/16 23:29 - Labs Result Diagrams: 12/07/16 20:30 12/07/16 20:30 Assessment & Plan - Assessment and Plan (Free Text) Assessment: 51M presents with left arm shingles rash and two abscesses - IV Antibiotics - warm compresses - dressing/wound care Roge Monae, PGY2 <Jalen Cornejo - Last Filed: 12/13/16 10:34> Results - Vital Signs Recent Vital Signs: Last Vital Signs Temp 97.7 F 12/10/16 07:30 Pulse 76 12/10/16 07:30 Resp 22 12/10/16 07:30 BP 139/90 12/10/16 07:30 Pulse Ox 94 L 12/10/16 07:30 - Labs Result Diagrams: 12/07/16 20:30 12/07/16 20:30 Assessment & Plan - Assessment and Plan (Free Text) Assessment: Dx 2 Abscesses left arm secondary to scratching shingles cellulitis Poor compliant history Doubt 2nd abscess needs drainage now-Squeezed dry This consult done under my direct supervision Jaskaran Cornejo MD FACS
[2016-12-08] MEDS: Piperacillin/Tazobact 2.25gm 2.25 GM/100 ML BAG IVPB SCH ×2 (05:43→12:53)
[2016-12-08] MEDS ORDERED: Pantoprazole 40 mg EC Tab PO STA (11:11)
[2016-12-08] MEDS ORDERED: Alum-Mag Hydrox-Simethicone Susp (30 mL) PO ONE (11:12)
[2016-12-08] MEDS: Vancomycin 1gm in NS 250ml 1 GM/250 ML BAG IVPB SCH ×2 (11:46→21:29)
[2016-12-08] MEDS ORDERED: Oxycodone/Acetaminophen 5/325 mg Tab PO PRN (11:53)
[2016-12-08] MEDS: Oxycodone/Acetaminophen 10/325 mg Tab PO PRN ×2 (12:32→18:15)
--- NOTE | 2016-12-08 13:22 | CP.PCM.HP ---
History of Present Illness - History of Present Illness History of Present Illness: 51 yo male s/p HZ infection L arm, with infected vescicles/abscess and cellultitis past week. No fever/chill, no N/V, Present on Admission - Present on Admission Any Indicators Present on Admission: No Review of Systems - Respiratory Respiratory: Dyspnea on Exertion - Musculoskeletal Additional comments: L arm pain - Integumentary Integumentary: Skin Ulcer (L arm abscess s/p I&D in ED) Past Patient History - Infectious Disease Hx of Infectious Diseases: None - Tetanus Immunizations Tetanus Immunization: Unknown - Past Social History Smoking Status: Heavy Smoker > 10 Cigarettes Daily - CARDIAC Hx Cardiac Disorders: Yes Hx Hypertension: Yes - PULMONARY Hx Asthma: Yes Hx Bronchitis: Yes Hx Chronic Obstructive Pulmonary Disease (COPD): Yes - NEUROLOGICAL Hx Neurological Disorder: No - HEENT Hx HEENT Problems: Yes (WEARS RX GLASSES) - RENAL Hx Chronic Kidney Disease: No - ENDOCRINE/METABOLIC Hx Endocrine Disorders: No - HEMATOLOGICAL/ONCOLOGICAL Hx Blood Disorders: No - INTEGUMENTARY Hx Dermatological Problems: No - MUSCULOSKELETAL/RHEUMATOLOGICAL Hx Musculoskeletal Disorders: Yes Hx Arthritis: Yes (DJD) Other/Comment: spinal stenosis - GASTROINTESTINAL Hx Gastrointestinal Disorders: Yes Hx Gastroesophageal Reflux: Yes - GENITOURINARY/GYNECOLOGICAL Hx Genitourinary Disorders: Yes Hx Prostate Problems: Yes (BPH) - PSYCHIATRIC Hx Psychophysiologic Disorder: Yes Hx Anxiety: Yes Hx Depression: No Hx Emotional Abuse: No Hx Physical Abuse: No Hx Substance Use: No - SURGICAL HISTORY Other/Comment: gall stone - ANESTHESIA Hx Anesthesia: Yes Hx Anesthesia Reactions: No Meds Allergies/Adverse Reactions: Allergies Allergy/AdvReac Type Severity Reaction Status Date / Time No Known Allergies Allergy Verified 09/27/16 16:59 Results - Vital Signs Recent Vital Signs: Last Vital Signs Temp 98 F 12/08/16 07:30 Pulse 93 H 12/08/16 07:30 Resp 20 12/08/16 07:30 BP 110/71 12/08/16 07:30 Pulse Ox 93 L 12/08/16 07:30 - Labs Result Diagrams: 12/07/16 20:30 12/07/16 20:30 Assessment & Plan (1) Abscess Status: Acute (2) Cellulitis Status: Acute (3) Failure of outpatient treatment Status: Acute (4) Shingles rash Status: Acute - Date & Time Date: 12/08/16 Time: 13:00
[2016-12-09] MEDS: Pantoprazole 40 mg EC Tab PO SCH (06:12)
[2016-12-09] MEDS: Oxycodone/Acetaminophen 10/325 mg Tab PO PRN ×3 (06:18→18:37)
--- NOTE | 2016-12-09 12:26 | CP.PCM.PN ---
Subjective - Date & Time of Evaluation Date of Evaluation: 12/09/16 Time of Evaluation: 09:45 - Subjective Subjective: nad Objective - Vital Signs/Intake and Output Vital Signs (last 24 hours): Temp Pulse Resp BP Pulse Ox 98 F 86 20 116/90 95 12/09/16 08:11 12/09/16 08:11 12/09/16 08:11 12/09/16 08:11 12/09/16 08:11 Intake and Output: 12/09/16 12/09/16 06:59 18:59 Intake Total 240 Balance 240 - Medications Medications: Current Medications Acetaminophen (Tylenol 325mg Tab) 650 mg PO Q4H PRN PRN Reason: Fever >100.4 F Ceftaroline Fosamil 400 mg/ (Sodium Chloride) 100 mls @ 100 mls/hr IVPB Q12 NORBERT PRN Reason: Protocol Stop: 12/15/16 22:46 Last Admin: 12/08/16 23:20 Dose: 100 mls/hr Ibuprofen (Motrin Tab) 400 mg PO Q6H PRN PRN Reason: Pain, Mild (1-3) Mupirocin (Bactroban Ointment) 0 gm TOP BID COUNT [facility]CLUDES [facility] Last Admin: 12/09/16 10:27 Dose: 1 oin Oxycodone/Acetaminophen (Percocet 10/325 Mg Tab) 1 tab PO Q6H PRN PRN Reason: Pain, severe (8-10) Last Admin: 12/09/16 06:18 Dose: 1 tab Pantoprazole Sodium (Protonix Ec Tab) 40 mg PO 0600 [facility] INCLUDES [facility] Last Admin: 12/09/16 06:12 Dose: 40 mg - Respiratory Exam Respiratory Exam: Clear to Ausculation Bilateral, NORMAL BREATHING PATTERN - Cardiovascular Exam Cardiovascular Exam: REGULAR RHYTHM - GI/Abdominal Exam GI & Abdominal Exam: Soft, Normal Bowel Sounds - Extremities Exam Additional comments: decreased swelling L arm, 2 abscesses with some fluctuance and drainage - Neurological Exam Neurological Exam: Awake, Oriented x3 Assessment and Plan (1) Abscess Status: Acute (2) Cellulitis Status: Acute (3) Failure of outpatient treatment Status: Acute (4) Shingles rash Status: Acute - Assessment and Plan (Free Text) Plan: continue surgical f/u, IV Abx, wound care
[2016-12-09 18:00] VITALS: PULSE 76
[2016-12-10] MEDS: Pantoprazole 40 mg EC Tab PO SCH (05:58)
[2016-12-10] MEDS: Oxycodone/Acetaminophen 10/325 mg Tab PO PRN (06:13)
--- NOTE | 2016-12-10 08:51 | CP.PCM.PCO ---
Physician Communication Note - Physician Communication Note Physician Communication Note: + MRSA/I&D L arm yesterday
--- NOTE | 2016-12-10 09:40 | CON ---
DATE: 12/09/2016. The patient is seen earlier today in 577 bed 2. CHIEF COMPLAINT: Left arm infection times several days. HISTORY OF PRESENT ILLNESS: This is a 51-year-old male with past medical history significant for chronic obstructive lung disease, GERD, degenerative joint disease and questionable lung abscess in 2009, who was admitted through the emergency room with some diagnosis of cellulitis, infectious diseases consultation requested. The patient states he has had no fever, no chills, no nausea, no vomiting, and no chest pain. The patient was seen by *------*in the emergency room. PAST MEDICAL HISTORY: Significant for COPD, GERD, degenerative joint disease, right-sided community acquired pneumonia in the past and questionable lung abscess in 2009. PAST SURGICAL HISTORY: Noncontributory. ALLERGIES: The patient has no known allergies. Medications: Are noted PHYSICAL EXAMINATION VITAL SIGNS: The patient's temperature is 98, blood pressure is 110/70, respiratory rate of 20, heart rate of 93 and pulse oximetry is 93%. HEENT: Unremarkable. NECK: Supple. LUNGS: Decreased breath sound. CARDIOPULMONARY: Heart exam is normal with S1 and S2. ABDOMEN: Soft. EXTREMITIES: Examination of the left arm reveals the patient has, by the elbow with full range of elbow joint and the joint is not infected and not affected. There is multiple *------* vesicular lesions and were complicated by two larger lesions that are infected. LABORATORY DATA: Examination revealed the patient's white count to be within normal limits at 9800, hemoglobin of 13, and platelets of 228. Chemistry revealed the patient's BUN of 30 and creatinine of 1.3. The patient's creatinine in the past had been up to 2 in 2013 and 1.5 in 2013. The patient's laboratories in the past, the patient had HIV test that was negative in the past and in 2014. Microbiology is pending and he did have MRSA as an outpatient. The patient was given antibiotic as an outpatient and the MRSA from 12/06/2016 was grown from the patient's abscess, sensitivity to tetracycline, sensitivity to Bactrim, sensitivity to clindamycin and resistant to erythromycin and with VALERIO of less than 0.5 to vancomycin. ASSESSMENT AND PLAN: A 51-year-old with left arm Methicillin-resistant Staphylococcus aureus, cellulitis, abscess and currently *------* because of renal insufficiency. We will also request the Methicillin-resistant Staphylococcus aureus screen and repeat HIV and nasal Methicillin-resistant Staphylococcus aureus screen will be ordered and we will see the patient with *------* pending cultures. The patient also on acylovir as an outpatient and complete his therapy as an outpatient, and we will follow closely with you. Justino Thurman MD
[2016-12-10 09:53] VITALS: BP 139/90; RESP 22; TEMP 97.7; O2SAT 94
--- NOTE | 2016-12-10 11:30 | CP.PCM.DIS ---
Provider - Provider Date of Admission: 12/08/16 13:01 Attending physician: Primo Velazquez JD, MD Primary care physician: Primo Velazquez JD, MD Time Spent in preparation of Discharge (in minutes): 5 Diagnosis - Discharge Diagnosis (1) Abscess Status: Acute (2) Cellulitis Status: Acute (3) Failure of outpatient treatment Status: Acute (4) Shingles rash Status: Acute Hospital Course - Lab Results Lab Results: Micro Results 12/09/16 08:30 Blood-Venous Blood Culture - Preliminary NO GROWTH AFTER 24 HOURS 12/09/16 08:30 Blood-Venous Blood Culture - Preliminary NO GROWTH AFTER 24 HOURS 12/09/16 11:00 Arm - Left Gram Stain - Final Most Recent Lab Values WBC 9.8 10^3/ul (4.5-11.0) 12/07/16 20:30 RBC 4.74 10^6/uL (3.5-6.1) 12/07/16 20:30 Hgb 13.9 gm/dL (14.0-18.0) L 12/07/16 20:30 Hct 42.5 % (42.0-52.0) 12/07/16 20:30 MCV 89.7 fL (80.0-105.0) 12/07/16 20:30 MCH 29.3 pg (25.0-35.0) 12/07/16 20:30 MCHC 32.7 g/dl (31.0-37.0) 12/07/16 20:30 RDW 12.9 % (11.5-14.5) 12/07/16 20:30 Plt Count 228 10^3/uL (120.0-450.0) 12/07/16 20:30 MPV 9.2 fl (7.0-11.0) 12/07/16 20:30 Gran % 73.0 % (50.0-68.0) H 12/07/16 20:30 Lymph % (Auto) 14.9 % (22.0-35.0) L 12/07/16 20:30 [place] % (Auto) 10.9 % (1.0-6.0) H 12/07/16 20:30 Eos % (Auto) 0.7 % (1.5-5.0) L 12/07/16 20:30 Baso % (Auto) 0.5 % (0.0-3.0) 12/07/16 20:30 Gran # 7.16 (1.4-6.5) H 12/07/16 20:30 Lymph # 1.5 (1.2-3.4) 12/07/16 20:30 [place] # 1.1 (0.1-0.6) H 12/07/16 20:30 Eos # 0.1 (0.0-0.7) 12/07/16 20:30 Baso # 0.05 K/mm3 (0.0-2.0) 12/07/16 20:30 ESR 15 mm/hr (0.00-15.0) 12/07/16 20:30 Sodium 140 mmol/L (132-148) 12/07/16 20:30 Potassium 4.3 mmol/L (3.6-5.0) 12/07/16 20:30 Chloride 101 mmol/L (98-107) 12/07/16 20:30 Carbon Dioxide 28 mmol/L (21-33) 12/07/16 20:30 Anion Gap 15 (10-20) 12/07/16 20:30 BUN 30 mg/dL (7-21) H 12/07/16 20:30 Creatinine 1.3 mg/dL (0.5-1.4) 12/07/16 20:30 Est GFR ( Amer) > 60 12/07/16 20:30 Est GFR (Non-Af Amer) 58 12/07/16 20:30 Random Glucose 91 mg/dL (70-110) 12/07/16 20:30 Calcium 9.2 mg/dL (8.4-10.5) 12/07/16 20:30 Total Bilirubin 0.9 mg/dL (0.2-1.3) 12/07/16 20:30 AST 29 U/L (15-59) 12/07/16 20:30 ALT 41 U/L (7-56) 12/07/16 20:30 Alkaline Phosphatase 72 U/L (38-133) 12/07/16 20:30 Total Protein 7.5 g/dL (5.8-8.3) 12/07/16 20:30 Albumin 4.2 g/dL (3.0-4.8) 12/07/16 20:30 Globulin 3.3 gm/dL 12/07/16 20:30 Albumin/Globulin Ratio 1.3 (1.1-1.8) 12/07/16 20:30 Discharge Plan - Follow Up Plan Condition: STABLE Disposition: HOME/ ROUTINE Patient education suggested?: No Additional Instructions: Patient signed AMA before being seen Referrals: Primo Velazquez JD, MD [Primary Care Provider] -
--- NOTE | 2016-12-10 17:43 | CP.PCM.PCO ---
Physician Communication Note - Physician Communication Note Physician Communication Note: Signed AMA/Refused Ab/Packing removal-Attending notified
--- NOTE | 2016-12-13 10:44 | PCM.SURG1 ---
Surgeon's Initial Post Op Note - Surgeon's Notes Surgeon: Clemente Tour Consultant: na Type of Anesthesia: Local Anesthesia Administered By: clemente Pre-Operative Diagnosis: L Arm Abscess-Shingles Operative Findings: abscess(Evacuated) Post-Operative Diagnosis: same Operation Performed: I & D Abscess Specimen/Specimens Removed: c//s Estimated Blood Loss: EBL {In ML}: 20 Blood Products Given: N/A Drains Used: No Drains Date of Surgery/Procedure: 12/09/16 Time of Surgery/Procedure: 11:00
== END 2016-12-10 10:30 | disposition left against medical advice (07) | DRG 277 ==
LOC: ED 19:19 → ERH 21:29 → 5RSO 23:46 → OBSVTOIN 12-08 13:01
PROVIDERS: ADMIT Internal Medicine; ATTEND Internal Medicine
DX: L02.414 Cutaneous abscess of left upper limb (principal); J44.9 Chronic obstructive pulmonary disease, unspecified; B02.9 Zoster without complications; L03.114 Cellulitis of left upper limb; B95.62 Methicillin resistant Staphylococcus aureus infection as the cause of diseases classified elsewhere; M48.00 Spinal stenosis, site unspecified; N40.0 Benign prostatic hyperplasia without lower urinary tract symptoms; K21.9 Gastro-esophageal reflux disease without esophagitis; M19.90 Unspecified osteoarthritis, unspecified site

== ENCOUNTER 2018-01-27 08:59 | Emergency (ER) | payer MEDICAID ==
[2018-01-27 09:00] VITALS: BMI 32.5
== END 2018-01-27 09:09 | disposition left against medical advice (07) ==
LOC: ED 08:59
DX: Z02.89 Encounter for other administrative examinations (principal); Z00.00 Encounter for general adult medical examination without abnormal findings

== ENCOUNTER 2018-10-23 08:33 | Observation (INO) | payer MEDICAID ==
--- NOTE | 2018-10-23 09:22 | ED PDOC ---
Arrival/HPI - General Chief Complaint: Lower Extremity Problem/Injury Time Seen by Provider: 10/23/18 09:07 Historian: Patient - History of Present Illness Narrative History of Present Illness (Text): 10/23/18 09:40 53 y/o 2 PPD tobacco smoking male with PMH of COPD, HLD, HTN, CELINE, and GERD presents to the ED c/o lower leg pain and swelling x 2 weeks. Associated left sided sharp chest pain, last this morning while eating breakfast. 1 week ago he had an episode that he describes as "feeling something move from his calf to his chest, with acute onset of SOB, sharp chest pain, and lightheadedness. Episode resolved after a few minutes without intervention. Pt was seen by PMD at that time and was advised to go straight to ED, which patient did not do. Pain in left calf worsened today, prompting visit to ED. Also states his bilateral lower extremities feel "cold and numb". He has not taken any medication for pain. Last stress test 6-7 years ago. He has been smoking tobacco for the last 45 years. Denies fever, chills, back pain, neck pain, palpitations, diaphoresis, urinary symptoms, nausea, vomiting, abdominal pain, diarrhea, constipation, or any other associated symptoms. PMD: Dr. 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 Grace Past Medical History - Provider Review Nursing Documentation Reviewed: Yes - Infectious Disease Hx of Infectious Diseases: None - Tetanus Immunization Tetanus Immunization: Unknown - Cardiac Hx Cardiac Disorders: Yes Hx Hypertension: Yes Hx Peripheral Vascular Disease: Yes - Pulmonary Hx Asthma: Yes Hx Bronchitis: Yes Hx Chronic Obstructive Pulmonary Disease (COPD): Yes - Neurological Hx Neurological Disorder: No - HEENT Hx HEENT Disorder: Yes (WEARS RX GLASSES) - Renal Hx Renal Disorder: No - Endocrine/Metabolic Hx Endocrine Disorders: No - Hematological/Oncological Hx Blood Disorders: No - Integumentary Hx Dermatological Disorder: No - Musculoskeletal/Rheumatological Hx Musculoskeletal Disorders: Yes Hx Arthritis: Yes (DJD) Other/Comment: spinal stenosis - Gastrointestinal Hx Gastrointestinal Disorders: Yes Hx Gastroesophageal Reflux: Yes - Genitourinary/Gynecological Hx Genitourinary Disorders: Yes Hx Prostate Problems: Yes (BPH) - Psychiatric Hx Psychophysiologic Disorder: Yes Hx Anxiety: Yes Hx Depression: No Hx Emotional Abuse: No Hx Physical Abuse: No Hx Substance Use: No - Past Surgical History Past Surgical History: No Previous - Surgical History Other/Comment: gall stone - Anesthesia Hx Anesthesia: Yes Hx Anesthesia Reactions: No - Suicidal Assessment Feels Threatened In Home Enviroment: No Family/Social History - Physician Review Nursing Documentation Reviewed: Yes Family/Social History: No Known Family HX Smoking Status: Heavy Smoker > 10 Cigarettes Daily Hx Alcohol Use: No Hx Substance Use: No Hx Substance Use Treatment: No Allergies/Home Meds Allergies/Adverse Reactions: Allergies No Known Allergies Allergy (Verified 10/23/18 12:36) Home Medications: Home Meds Medication Instructions Recorded Confirmed Celecoxib [Celebrex] 200 mg PO BID 02/23/15 10/23/18 Fluticasone/Salmeterol 250/50 1 puff INH BID 02/23/15 10/23/18 [Advair Diskus 250/50] Cyclobenzaprine [Flexeril] 10 mg PO DAILY 06/12/15 10/23/18 Losartan Potassium 50 mg PO DAILY 12/07/16 10/23/18 Omeprazole 40 mg pe PO DAILY 12/07/16 10/23/18 Oxycodone HCl/Acetaminophen 1 tab PO Q6H PRN 12/08/16 10/23/18 [Percocet 10-325 mg Tablet] Furosemide [Lasix] 40 mg PO DAILY 10/23/18 10/23/18 Gabapentin [Neurontin] 300 mg PO TID 10/23/18 10/23/18 Physical Exam Vital Signs Reviewed: Yes Vital Signs Temp Pulse Resp BP Pulse Ox 10/23/18 08:43 98.4 F 92 H 18 155/79 H 97 Temperature: Afebrile Blood Pressure: Hypertensive Pulse: Regular Respiratory Rate: Normal Appearance: Positive for: Well-Appearing, Non-Toxic, Comfortable Pain Distress: None Mental Status: Positive for: Alert and Oriented X 3 - Systems Exam Head: Present: Atraumatic, Normocephalic Pupils: Present: PERRL Extroacular Muscles: Present: EOMI Conjunctiva: Present: Normal Mouth: Present: Moist Mucous Membranes Neck: Present: Normal Range of Motion. No: Meningeal Signs Respiratory/Chest: Present: Wheezes (expiratory, diffuse, bilaterally), Decreased Breath Sounds (bilaterally). No: Respiratory Distress, Accessory Muscle Use, Rales Cardiovascular: Present: Regular Rate and Rhythm, Normal S1, S2, Peripheal Pulses Present Abdomen: Present: Normal Bowel Sounds. No: Tenderness, Distention, Peritoneal Signs Back: Present: Normal Inspection. No: CVA Tenderness Upper Extremity: Present: Normal Inspection, Normal ROM, NORMAL PULSES, Neurovascularly Intact, Capillary Refill < 2s. No: Cyanosis, Edema, Temperature Abnormalties Lower Extremity: Present: Normal Inspection, CALF TENDERNESS (left), NORMAL PULSES, Normal ROM, Swelling (bilateral, nonpitting, L>R), Neurovascularly Intact, Capillary Refill < 2 s. No: Deformity, Temperature Abnormalties Neurological: Present: GCS=15, Speech Normal, Motor Func Grossly Intact, Normal Sensory Function, Gait Normal Skin: Present: Warm, Dry, Normal Color. No: Rashes Psychiatric: Present: Alert, Oriented x 3, Normal Insight, Normal Concentration, Normal Affect, Normal Mood Medical Decision Making ED Course and Treatment: 10/23/18 09:22 Initial Plan: * Labs * UA * EKG * CXR * Bilateral lower extremity venous duplex EKG shows rate 86; NSR; Normal intervals and axis; No STEMI or other signs of acute ischemia 10:00 CBC and CMP reviewed, unremarkable. No leukocytosis or left shift, no anemia or electrolyte disturbances. 11:30 Venous duplex prelim read negative for DVT Pain unrelieved by tylenol, home pain med ordered. 12:[address] Velazquez who accepted patient for inpatient telemetry observation with diagnosis of chest pain, COPD, peripheral edema. Asks for consult with Dr. Grace, cardiology. ASA given. - Lab Interpretations Lab Results: 10/23/18 09:40 10/23/18 09:40 Lab Results 10/23/18 10:18: Urine Color Yellow, Urine Appearance Clear, Urine pH 6.0, Ur Specific [place] 1.010, Urine Protein Negative, Urine Glucose (UA) Negative, Urine Ketones Negative, Urine Blood Negative, Urine Nitrate Negative, Urine Bilirubin Negative, Urine Urobilinogen 0.2, Ur Leukocyte Esterase Negative 10/23/18 09:40: PT 11.6, INR 1.03, APTT 31.4, D-Dimer, Quantitative < 200 10/23/18 09:40: Sodium 140, Potassium 4.7, Chloride 101, Carbon Dioxide 32, Anion Gap 12, BUN 33 H, Creatinine 1.0, Est GFR ( Amer) > 60, Est GFR (Non-Af Amer) > 60, Random Glucose 108, Calcium 8.7, Magnesium 1.9, Total Bilirubin 0.4, AST 15 L, ALT 23, Alkaline Phosphatase 60, Troponin I < 0.01, NT-Pro-B Natriuret Pep 227, Total Protein 6.9, Albumin 3.8, Globulin 3.1, Albumin/Globulin Ratio 1.2 10/23/18 09:40: WBC 6.7, RBC 5.08, Hgb 14.4, Hct 46.0, MCV 90.6, MCH 28.3, MCHC 31.3, RDW 13.5, Plt Count 203, MPV 8.9, Neut % (Auto) 64.4, Lymph % (Auto) 25.2, [place] % (Auto) 7.5 H, Eos % (Auto) 2.4, Baso % (Auto) 0.5, Lymph # (Auto) 1.7, [place] # (Auto) 0.5, Eos # (Auto) 0.2, Baso # (Auto) 0.03, Absolute Neuts (auto) 4.29 I have reviewed the lab results: Yes - RAD Interpretation Narrative RAD Interpretations (Text): 11:28 CXR: FINDINGS: LUNGS: No active pulmonary disease. PLEURA: No significant pleural effusion identified, no pneumothorax apparent. CARDIOVASCULAR: Attic atherosclerotic calcifications. Cardiomediastinal silhouette within normal limits. OSSEOUS STRUCTURES: Unchanged. VISUALIZED UPPER ABDOMEN: Normal. OTHER FINDINGS: None. IMPRESSION: No active disease. Radiology Orders: 10/23/18 09:14 DUPLEX LOWER EXTRM VEIN BILAT [US] Stat 10/23/18 09:15 CHEST PORTABLE [RAD] Stat Landing Signal Officer: Radiologist - EKG Interpretation EKG Interpretation (Text): 10/23/18 09:29 Rate 86; NSR; Normal intervals and axis; No STEMI or other signs of acute ischemia Interpreted by ED Physician: Yes Type: 12 lead EKG Disposition/Present on Arrival - Present on Arrival Any Indicators Present on Arrival: No History of DVT/PE: No History of Uncontrolled Diabetes: No Urinary Catheter: No History of Decub. Ulcer: No History Surgical Site Infection Following: None - Disposition Have Diagnosis and Disposition been Completed?: Yes Diagnosis: Chest pain, COPD (chronic obstructive pulmonary disease), Peripheral edema Disposition: HOSPITALIZED Disposition Time: 11:30 Condition: STABLE
[2018-10-23] MEDS: Albuterol-Ipratrop 3 mg / 0.5 (3 ml) UD IH SCH ×3 (09:31→09:56)
[2018-10-23 09:51] LABS: BASO # 0.03 K/mm3 (0.0-2.0); BASO % 0.5 % (0.0-3.0); EOS # 0.2 (0.0-0.7); EOS % 2.4 % (1.5-5.0); HEMOGLOBIN 14.4 g/dL (14.0-18.0); LYMPH # 1.7 (1.2-3.4); LYMPH % 25.2 % (22.0-35.0); MEAN CELL VOLUME 90.6 fl (80.0-105.0); MEAN CORPUSCULAR HEMOGLOBIN 28.3 pg (25.0-35.0); MEAN CORPUSCULAR HGB CONC 31.3 g/dl (31.0-37.0); MEAN PLATELET VOLUME 8.9 fl (7.0-11.0); MONO # 0.5 (0.1-0.6); MONO % 7.5 % (1.0-6.0); RBC 5.08 10^6/uL (3.5-6.1); RED CELL DISTRIBUTION WIDTH 13.5 % (11.5-14.5); WHITE BLOOD COUNT 6.7 10^3/uL (4.5-11.0)
[2018-10-23 09:58] LABS: ALB/GLOB RATIO 1.2 (1.1-1.8); ALBUMIN 3.8 g/dL (3.0-4.8); ALT/SGPT 23 U/L (7-56); AST/SGOT 15 U/L (17-59); BLOOD UREA NITROGEN 33 mg/dL (7-21); CALCIUM 8.7 mg/dL (8.4-10.5); GFR NON-AFRICAN AMERICAN > 60
[2018-10-23 10:04] LABS: INR 1.03; PARTIAL THROMBOPLASTIN TIME 31.4 Seconds (26.9-38.3); PROTHROMBIN TIME 11.6 SECONDS (9.4-12.5)
[2018-10-23 10:05] LABS: D DIMER < 200 ng/mlDDU (0-243)
[2018-10-23 10:10] LABS: B-TYPE NATRIURETIC PEPTIDE 227 pg/mL (0-450); TROPONIN I < 0.01 ng/mL
[2018-10-23] MEDS ORDERED: Oxycodone/Acetaminophen 5/325 mg Tab PO STA (10:41)
--- NOTE | 2018-10-23 11:12 | RAD ---
Date of service: 10/23/2018 HISTORY: chest pain COMPARISON: Chest radiograph dated 12/06/2016. TECHNIQUE: 1 view obtained. FINDINGS: LUNGS: No active pulmonary disease. PLEURA: No significant pleural effusion identified, no pneumothorax apparent. CARDIOVASCULAR: Attic atherosclerotic calcifications. Cardiomediastinal silhouette within normal limits. OSSEOUS STRUCTURES: Unchanged. VISUALIZED UPPER ABDOMEN: Normal. OTHER FINDINGS: None. IMPRESSION: No active disease.
[2018-10-23 11:18] LABS: URINE BILIRUBIN NEGATIVE (NEGATIVE); URINE BLOOD NEGATIVE (NEGATIVE); URINE GLUCOSE (UA) NEGATIVE (NEGATIVE); URINE LEUKOCYTE ESTERASE NEGATIVE Leu/uL (NEGATIVE); URINE PROTEIN NEGATIVE mg/dL (<30 mg/dL); URINE UROBILINOGEN 0.2 E.U./dL (<1 E.U./dL)
[2018-10-23 11:23] LABS: URINE APPEARANCE CLEAR (CLEAR); URINE COLOR YELLOW (YELLOW)
[2018-10-23 15:01] VITALS: BMI 33.9
[2018-10-23] MEDS ORDERED: Pneumococcal 23-Valent Vaccine IM ONE (15:01)
[2018-10-23] MEDS: Oxycodone/Acetaminophen 10/325 mg Tab PO PRN (17:44)
[2018-10-24] MEDS: Oxycodone/Acetaminophen 10/325 mg Tab PO PRN ×3 (04:50→19:12)
[2018-10-24] MEDS ORDERED: Albuterol-Ipratrop 3 mg / 0.5 (3 ml) UD IH STA (04:58)
[2018-10-24] MEDS ORDERED: Aminophylline 25 mg/ml Inj ONE (10:25)
--- NOTE | 2018-10-24 11:12 | CARD ---
APPROVED REPORT Date of service: 10/23/2018 EKG Measurement Heart [id number] <Conclusion> Normal sinus rhythm Normal ECG
--- NOTE | 2018-10-24 11:51 | US ---
HISTORY: Leg pain and swelling. Evaluate for DVT PHYSICIAN(S): Dominguez Issa MD. TECHNIQUE: Duplex sonography and color-flow Doppler with graded compression were used to evaluate the deep venous systems of both lower extremities. FINDINGS: The visualized deep venous systems of both lower extremities are sonographically normal and compressible. Normal wave forms and augmentation are seen. There is no sonographic evidence for deep venous thrombosis in the visualized segments of both lower extremities. IMPRESSION: No sonographic evidence for deep venous thrombosis in the visualized segments of both lower extremities.
[2018-10-24] MEDS ORDERED: Albuterol-Ipratrop 3 mg / 0.5 (3 ml) UD IH PRN (16:17)
--- NOTE | 2018-10-24 18:48 | CARD ---
APPROVED REPORT Date of service: 10/24/2018 EXAM: Two-dimensional and M-mode echocardiogram with Doppler and color Doppler. INDICATION Chest Pain 2D DIMENSIONS Left Atrium (2D)4.0 (1.6-4.0cm)IVSd1.5 (0.7-1.1cm) LVDd4.7 (3.9-5.9cm)PWd1.6 (0.7-1.1cm) LVDs3.4 (2.5-4.0cm)FS (%) 28.1 % LVEF (%)54.2 (>50%) M-Mode DIMENSIONS Aortic Root3.90 (2.2-3.7cm)Aortic Cusp Exc.1.90 (1.5-2.0cm) Aortic Valve AoV Peak Gutfctwz939.0cm/Rosaura Peak GR.14mmHg Mitral Valve E/A ratio0.0 TDI E/Lateral E'0.0E/Medial E'0.0 Tricuspid Valve TR Peak [id number] [id number] Peak Gr.32mmHg [id number] LEFT VENTRICLE The left ventricle is normal size. There is mild to moderate concentric left ventricular hypertrophy. The left ventricular function is normal.EF-55% There is normal LV segmental wall motion. Transmitral Doppler flow pattern is Grade III-reversible restrictive diastolic dysfunction. No left ventricle thrombus noted on this study. There is no ventricular septal defect visualized. There is no left ventricular aneurysm. There is no mass noted in the left ventricle. RIGHT VENTRICLE The right ventricle is normal size. There is normal right ventricular wall thickness. The right ventricular systolic function is normal. ATRIA The left atrium is borderline dilated. The right atrium is borderline dilated. The interatrial septum is intact with no evidence for an atrial septal defect. AORTIC VALVE The aortic valve is thickened but opens well. The aortic valve is mildly to moderately sclerotic. There is trace to mild aortic regurgitation. There is no aortic valvular stenosis. There is no aortic valvular vegetation. MITRAL VALVE The mitral valve is thickened but opens well. Mitral regurgitation is trace. There is no mitral valve stenosis. There is no evidence of mitral valve prolapse. TRICUSPID VALVE The tricuspid valve leaflets are thickened , but open well. There is mild tricuspid regurgitation.RVSP_42 mmof hg. There is no tricuspid valve stenosis. There is no tricuspid valve prolapse or vegetation. PULMONIC VALVE The pulmonary valve is normal in structure. There is trace pulmonic valvular regurgitation. There is no pulmonic valvular stenosis. GREAT VESSELS The aortic root is normal in size. The ascending aorta is normal in size. The pulmonary artery is normal. The IVC is normal in size and collapses >50% with inspiration. PERICARDIAL EFFUSION There is no pleural effusion. There is no pericardial effusion. <Conclusion> The left ventricle is normal size. The left ventricular function is normal.EF-55% There is trace to mild aortic regurgitation. Mitral regurgitation is trace. There is mild tricuspid regurgitation.RVSP_42 mmof hg. There is trace pulmonic valvular regurgitation. The IVC is normal in size and collapses >50% with inspiration. There is no pericardial effusion.
--- NOTE | 2018-10-24 19:23 | HP ---
DATE OF EXAM: 10/24/2018 HISTORY OF PRESENT ILLNESS: The patient is a 53-year-old male admitted through the emergency department on 10/23/2018 with left-sided chest pain and shortness of breath. Troponin was negative as well as EKG for acute infarct and the patient is admitted for further evaluation and management. PAST MEDICAL HISTORY: Includes COPD, hypertension, gastroesophageal reflux disease and obstructive sleep apnea. PAST SURGICAL HISTORY: The patient has no significant past surgical history. ALLERGIES: THE PATIENT HAS NO KNOWN DRUG ALLERGIES. CURRENT MEDICATIONS: Include omeprazole 40 mg daily. SOCIAL HISTORY: The patient has a history of greater than 28-[id number]-gmwc tobacco use. There is no history of alcohol or drug use. REVIEW OF SYSTEMS: The patient denies any abdominal pain. No melena, no bright red blood per rectum. No nausea, no vomiting, no diarrhea. No jaundice or rash. PHYSICAL EXAMINATION: GENERAL: The patient is a well-developed, somewhat obese male, in no acute distress. VITAL SIGNS: Blood pressure 137/87, temperature 97.7, pulse 88, respiratory rate 19. HEENT: Head is normocephalic, atraumatic. Pupils equal, round, reactive to light. Extraocular movements intact. NECK: Supple with no thyromegaly. No carotid bruit. No adenopathy. LUNGS: Clear. HEART: Regular rate and rhythm. ABDOMEN: Soft, nontender, slightly obese. Bowel sounds are normoactive. EXTREMITIES: Without cyanosis or clubbing. There is 1 to 2+ bipedal edema. NEUROLOGIC: The patient is awake and responsive without focal sensory or motor deficits. SKIN: Warm and dry. LABORATORY DATA: WBC 6.7, hemoglobin 14.4, hematocrit 46.0. Sodium is 140, potassium 4.7, chloride 101, CO2 is 32, BUN 33, creatinine 1.0. Troponin is less than 0.01. BNP is 227. Chest x-ray shows no active disease. IMPRESSION: 1. Chest pain, rule out acute ischemia/infarct. 2. Chronic obstructive pulmonary disease. 3. Hypertension. 4. Gastroesophageal reflux disease. PLAN: The patient is admitted to the telemetry unit. We will obtain Cardiology consult, Dr. Grace for possible stress test. Primo Brown, MICHI/ MD [facility] # [id number]
--- NOTE | 2018-10-24 20:51 | CON ---
DATE: 10/24/2018 REASON FOR CONSULTATION: Followup of sharp chest pain, swelling of the lower extremity, and cardiac evaluation. 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 Denies any chest pain now, though the patient is an active tobacco abuser, still is short of breath. PAST MEDICAL HISTORY: Significant for COPD, hypertension, hyperlipidemia, obstructive sleep apnea, gastroesophageal reflux, and also significant for degenerative joint disease. PAST SURGICAL HISTORY: Significant for gallbladder many years ago. CURRENT MEDICATIONS: The patient is taking at home; Lasix 40 mg daily, Percocet 10/325 mg every 6 hours p.r.n., omeprazole, gabapentin, losartan 50 mg, Advair 1 puff b.i.d., Flexeril 10 mg daily, and Silvasta 100 mg p.o. b.i.d. ALLERGY: NO KNOWN DRUG ALLERGY. PREVIOUS CARDIAC WORKUP: As follows; the patient had an echocardiography done on 06/26/2013 that shows left ventricular hypertrophy, systolic function low normal, right ventricular function is normal, ejection fraction 50%, right ventricular systolic pressure 33. No significant valvular heart disease noted. At that time, recommendation was made for the stress test as outpatient, but the patient was a no show for a stress test. REVIEW OF SYSTEMS: As per HPI. PHYSICAL EXAMINATION: As follows; GENERAL: Height of the patient is 6 feet, weight of the patient 257 pounds, and body mass index 35 kg/m2. VITAL SIGNS: Temperature afebrile, heart rate 96, and blood pressure 149/91. HEENT: PERRLA intact. NECK: Supple. No carotid bruits or thyromegaly. CHEST: Clear to auscultation. HEART: S1 and S2 regular. ABDOMEN: Soft. EXTREMITIES: Clubbing and cyanosis negative; 2+ pedal edema noted. LABORATORY DATA: EKG showed normal sinus at rate of 86. No acute ST-T changes noted. Blood workup as follows; WBC 6.7, hemoglobin 14.4, hematocrit 46, and platelet count 203. Chemistry shows sodium 140, potassium 4.7, chloride 101, carbon dioxide 32, anion gap of 12, BUN 33, creatinine 1, and troponin 0.01. The patient has a duplex lower extremity done that was unofficially negative. IMPRESSION AND PLAN: A 53-year-old male with a past medical history significant for hypertension, chronic obstructive pulmonary disease, obstructive sleep apnea, hyperlipidemia, obesity, active tobacco abuse, history of substance abuse, still actively abuses tobacco, admitted with leg swelling and sharp chest pain which is atypical so far no evidence of acute myocardial infarction. Given the multiple risk factors for coronary artery disease, suggested an echocardiogram, stress test, lipid profile, TSH, and hemoglobin A1c; also suggested LUCIANO/PVR to see the circulation of the lower extremities. The patient is an active tobacco abuser and at risk for peripheral artery disease and coronary artery disease. Also we will start Lasix 40 mg IV every 12 hours. Suggested a complete cessation of smoking. We will give Lasix stat 40 mg and another at 2 p.m. Further recommendations will depend upon the hospital course. We will keep n.p.o. for a stress test today. I discussed with the patient; discussed with the . The patient says he cannot walk on the treadmill because he will get very short of breath and a history of cough, syncope. We will change to the Lexiscan. Also, the patient's requested a Lexiscan because she says that the patient had a cough, syncope, and syncopal episodes with exertion. The stress test was discussed with the nursing staff taking care of the patient. We will follow with you. Angelic Grace MD
--- NOTE | 2018-10-24 21:31 | CARD ---
APPROVED REPORT Date of service: 10/24/2018 Protocol: LEXISCAN Test Type: Lexiscan Sestamibi Stress Test Attending Physician: Dr. Angelic Garce Referring Physician: Dr. Primo Velazquez Test Indications: Chest Pain, r/o CAD Height:6 ft 0 in Weight:250lbs Medications: percocet, nicoderm cq Medical History: 53 year old male with h/o htn, high cholesterol, COPD, PVD, BPH, renal isufficiency, arthritis and back pain Target HR: 165 bpm Resting ECG: normal Resting Heart Rate: 86 bpm Resting Blood Pressure: 118/82mmHg Submaximum (85%): 140 bpm PROCEDURE Pharmacologic stress testing was performed using 0.4mg per 5ml of regadenoson given intravenously over 7-10 seconds. Reversal agent aminophyline 100 mg, given intravenously for Dyspnea. POST EXERCISE Reason for Termination: Protocol completed Target HR: No Max HR: 100 bpm 60% of Maximum Predicted HR: 165 bpm Exercise duration: 01:49 min:sec, 0 Stage Exercise capacity: 1.0METs Max Blood Pressure: 118/82mmHg Blood Pressure response to exercise: normal resting BP - appropriate response Heart Rate response to exercise: appropriate Chest Pain: No, none Angina index: 0 Arrhythmia: No, none ST Change: No, none Deviation: 0 mm TEST SUMMARY [id number]. INFUSIONDOSE [id number]. INFUSIONDOSE 200:[id number]/.0. [id number]. INTERPRETATION Stress EKG Conclusion: Negative IV Lexiscan for ischemia and for chest pain. Nuclear scan to follow. Signed by Angelic Grace Electronically Approved: 10/24/2018 11:43:59 EXAM: Myocardial Perfusion STRESS/REST Stress Test Type: Pharmacologic Imaging Protocol The imaging protocol used to acquire images was Stress Tc-99m/rest Tc-99m 1 day Rest Spect myocardial perfusion imaging was performed in supine position 50 minutes following the injection of 30.3 mCi of Tc-99 Myoview. At peak stress, the patient was injected intravenously with 10.2mCi of Tc-99 tetrofosmin after an infusion time of 0 minutes and 10 seconds. Gated Stress Spect was performed 55 minutes after intravenous Tc-99 Myoview injection. The images were gated to evaluate regional wall motion and calculate ventricular ejection fraction.Images were reconstructed using backfilter projection method in short horizontal and verticle long axis. Spect slices were generated. LV Perfusion The quality of the study is suboptmal due to motion during the stress and rest acuqisitioin. The left ventricle is mildly enlarged in size with thickened myocardium. The right ventricle is unremarkable. The lung uptake is normal. The distribution of tracer reveals moderately and diffusely decreased perfusion in the inferior wall on the stress study. The remainder of the LV myocardium is unremarkable. The rest myocardial perfusion study shows no significant change. Wall Motion Wall motion study shows good contractility of the left ventricle. LVEF = 57%. Conclusion 1. Technically suboptimal study. 2. Probably normal SPECT myocardial perfusion study. 3. Fixed, inferior defect is most likely due to diaphrgmatic attenuation. 4. Normal gated wall motion and thicknening of the left ventricle.
[2018-10-24 23:11] VITALS: TEMP 97.9
[2018-10-25] MEDS: Oxycodone/Acetaminophen 10/325 mg Tab PO PRN (04:27)
[2018-10-25] MEDS ORDERED: Pantoprazole 40 mg EC Tab PO SCH (06:00)
--- NOTE | 2018-10-25 07:30 | CP.PCM.PN ---
Subjective - Date & Time of Evaluation Date of Evaluation: 10/25/18 Time of Evaluation: 06:45 - Subjective Subjective: Awake, alert, sitting side of bed,no distress Reason for consultation and follow up: Cardiac evaluation and follow up of chest pain, ruled out acute myocardial infarction, history of COPD,hypertension, obstructive sleep apnea, current 2 PPD smoking. Seen and examined by me and Dr. Grace Objective - Vital Signs/Intake and Output Vital Signs (last 24 hours): Temp Pulse Resp BP Pulse Ox 97.9 F 84 20 121/76 94 L 10/24/18 23:10 10/25/18 02:00 10/24/18 23:10 10/24/18 23:10 10/24/18 23:10 Intake and Output: 10/25/18 10/25/18 06:59 18:59 Intake Total 120 Output Total 1000 Balance -880 - Medications Medications: Current Medications Albuterol/Ipratropium (Duoneb 3 Mg/0.5 Mg (3 Ml) Ud) 3 ml IH [id number] PRN PRN Reason: Shortness of Breath Last Admin: 10/24/18 16:28 Dose: 3 ml Furosemide (Lasix) 40 mg IV 0800,1400 [facility] Last Admin: 10/24/18 14:10 Dose: 40 mg Nicotine (Nicoderm Cq) 1 patch TD DAILY [facility] Last Admin: 10/24/18 10:04 Dose: 1 patch Oxycodone/Acetaminophen (Percocet 10/325 Mg Tab) 1 tab PO Q6H PRN PRN Reason: Pain, moderate (4-7) Last Admin: 10/25/18 04:27 Dose: 1 tab Pantoprazole Sodium (Protonix Ec Tab) 40 mg PO 0600 [facility] Last Admin: 10/25/18 05:42 Dose: 40 mg - Labs Labs: 10/23/18 09:40 10/23/18 09:40 PT 11.6 SECONDS (9.4-12.5) 10/23/18 09:40 INR 1.03 10/23/18 09:40 APTT 31.4 Seconds (26.9-38.3) 10/23/18 09:40 - Constitutional Appears: Non-toxic, No Acute Distress - Head Exam Head Exam: NORMAL INSPECTION, NORMOCEPHALIC - Eye Exam Eye Exam: Normal appearance Pupil Exam: NORMAL ACCOMODATION - ENT Exam ENT Exam: Mucous Membranes Moist, Normal Exam - Respiratory Exam Respiratory Exam: Decreased Breath Sounds, Clear to Ausculation Bilateral, NORMAL BREATHING PATTERN - Cardiovascular Exam Cardiovascular Exam: REGULAR RHYTHM, +S1, +S2 - GI/Abdominal Exam GI & Abdominal Exam: Soft, Normal Bowel Sounds - Extremities Exam Extremities Exam: Full ROM Additional comments: left leg 1+edema right leg trace edema - Neurological Exam Neurological Exam: Alert, Awake, Oriented x3 - Psychiatric Exam Psychiatric exam: Normal Affect, Normal Mood - Skin Skin Exam: Dry, Normal Color, Warm Assessment and Plan - Assessment and Plan (Free Text) Assessment: A 53 year old obese male who came in to the ER due to chest pain. Also comp laints of leg swelling left more than right. History of COPD,hypertension, obstructive sleep apnea, hyplerlipidemia, GERD, cholecystectomy, current 2 packs per day tobacco smoking. Troponin normal. EKG showed Normal sinus rhythm no ischemia. Stress test done yesterday with normal myocardial perfusion, LVEF 57%. Echo done and showed LVEF 55%,trace mitral and pulmonic valve regurgitation, trace to mild AR, RVSP 42mmHg. No evidence of acute myocardial infarction. Will discontinue telemetry. For LUCIANO/PVR due to leg swelling and rsik of peripheral vascular disease due to tobacco abuse. May discharge from cardiac standpoint after PVR study. Follow up in office. Complete cessation of smoking. Plan: Denies chest pain Normal stress test For LUCIANO/PVR Discontinue telemetry Cardiac status stable Heart rate stable Blood pressure stable On Lasix 40 mg BID, Nicoderm patch daily Continue current treatment Continue current medications May discharge from cardiac standpoint Follow up in office in 2-3 weeks Complete cessation of smoking. Will follow up Plan and treatment discussed with Dr. Grace
[2018-10-25 08:45] VITALS: BP 124/82
[2018-10-25 08:57] VITALS: RESP 19; O2SAT 92
[2018-10-25 09:07] VITALS: PULSE 70
--- NOTE | 2018-10-25 10:30 | US ---
PROCEDURE: Lower extremity LUCIANO exam HISTORY: Peripheral vascular disease with pain and claudication. Smoker PHYSICIAN(S): Dominguez Issa MD. FINDINGS: The resting LUCIANO's are normal: right, 1.07and left, 1.10 The brachial systolic pressures are symmetric. The high thigh pressures and waveforms are relatively normal. The calf PVR waveforms augment normally. No significant gradients are noted across the thighs. The ankle and metatarsal waveforms are relatively normal and symmetric. No significant pressure gradients are noted across the lower legs. IMPRESSION: 1. Normal LUCIANO and PVR examination at rest.
--- NOTE | 2018-10-26 03:00 | DS ---
HOSPITAL COURSE: The patient is a 53-year-old female admitted through the emergency department on 10/23/2018 with chest pain. Serial EKG and enzymes were negative for acute myocardial infarction. The patient was seen in consultation by Cardiology, Dr. Rader/Dr. Grace, underwent stress test on 10/24/2018, which was negative. The patient is now medically stable for discharge. Denies any chest pain or shortness of breath at the present time. PHYSICAL EXAMINATION: VITAL SIGNS: Blood pressure 124/82, temperature 97.9, pulse 79, and respiratory rate 19. LUNGS: Clear. HEART: Regular rate and rhythm. ABDOMEN: Soft and nontender. Bowel sounds are normoactive. EXTREMITIES: Without cyanosis, clubbing, or edema. NEUROLOGIC: The patient is awake and oriented x3 without focal sensory or motor deficits. SKIN: Warm and dry. IMPRESSION: 1. Chest pain, stress test negative. 2. Chronic obstructive pulmonary disease. 3. Hypertension, hypertensive cardiovascular disease, and possible mild congestive heart failure. 4. Gastroesophageal reflux disease. 5. Obstructive sleep apnea. PLAN: The patient will be discharged to home today on the following medications; Lasix 40 mg daily, Percocet 10/325 one tablet every 6 hours, omeprazole 40 mg daily, Neurontin 300 mg three times daily, losartan 50 mg daily, Advair Diskus 250/50 one inhalation twice daily, Flexeril 10 mg daily p.r.n., and Celebrex 200 mg daily. The patient will be maintained on a heart healthy diet. Activities ad libitum. He will followed up as an outpatient within next 2-3 days. CHARO Jay MD
== END 2018-10-25 12:01 | disposition left against medical advice (07) ==
LOC: ED 08:33 → ERH 12:15 → 2RSO 13:31
PROVIDERS: ADMIT Internal Medicine; ATTEND Internal Medicine
DX: R07.89 Other chest pain (principal); E78.5 Hyperlipidemia, unspecified; I11.0 Hypertensive heart disease with heart failure; J44.9 Chronic obstructive pulmonary disease, unspecified; G47.33 Obstructive sleep apnea (adult) (pediatric); I50.9 Heart failure, unspecified; K21.9 Gastro-esophageal reflux disease without esophagitis; E66.9 Obesity, unspecified; F17.210 Nicotine dependence, cigarettes, uncomplicated; I73.9 Peripheral vascular disease, unspecified; N40.0 Benign prostatic hyperplasia without lower urinary tract symptoms; Z79.1 Long term (current) use of non-steroidal anti-inflammatories (NSAID); Z68.34 Body mass index [BMI] 34.0-34.9, adult
CPT/HCPCS: 71045; 78452; 80053; 81003; 83735; 83880; 84484; 85025; 85378; 85610; 85730; 93005; 93017; 93306; 93923; 93970; 94640; 94760; 96374; 96375; 96376; 99285; A9502; G0378; J0280; J1940; J2785; J2930